=== PATIENT | female | born 1985 | race Caucasian/White ===

== ENCOUNTER 2018-08-31 07:45 | Emergency (ER) | payer MEDICAID, SELFPAY ==
[2018-08-31 07:50] VITALS: BP 110/58; PULSE 62; RESP 14; TEMP 36.7; O2SAT 98
--- NOTE | 2018-08-31 08:17 | ED.GENADUL_ITS ---
Discharge Plan Disposition Patient Disposition: HOME Condition: Stable Discharge Details Chief Complaint: Allergic Clinical Impression: Allergic reaction Primary Care Provider: Ivania Shea ED Provider: Renata Jarrett Home Meds and New Rx's Prescriptions: New prednisone 20 mg tablet 20 mg PO DAILY Qty: 12 RF: 0 Continued ondansetron HCl [Zofran] 4 mg tablet 4 mg PO QID PRN (Reason: nausea and vomiting) Qty: 20 RF: 1 Nature Made Vitamin 1 tab PO DAILY RF: 0 Discontinued cephalexin 500 mg capsule 500 mg PO Q12H Qty: 20 RF: 1 Discharge Instructions Instructions: General Allergic Reaction (ED) Additional Instructions: Take [id number] Zyrtec, Claritin, or Stacie to help with itching. These are nonsedating antihistamines. Take the steroids as directed until finished. Call your soft work wrapper layer and examiner tomorrow morning to schedule a follow-up appointment for reevaluation this week. Return immediately to the emergency department with any worsening or new concerning symptoms. Discharge Data Discharge Date/Time-TO BE ENTERED AT DEPARTURE: 08/31/18 08:21 Discharge Physician: Renata Jarrett Medical Decision Making 32-year-old female who recently started dicloxacillin for mastitis who developed a pruritic erythematous rash under her armpits, which then worsened after stopping the dicloxacillin and starting cephalexin over the past week. Her mastitis is now resolved. She finished the Keflex 2 days ago. She denies any throat swelling or itching or shortness of breath or wheezing. Vitals within normal limits. Patient appears nontoxic. No signs of respiratory distress. Speaking full sentences. Airway intact. She has an erythematous rash noted underneath bilateral axilla, neck and face. Normal ENT exam. Lungs clear to auscultation. Discussed with patient that her rash appears like it was due to the dicloxacillin, but as it worsened after taking the Keflex this would be a possibility as well. She is already finished the Keflex and the mastitis is now resolved. She states she is no longer breast-feeding as her [id number] has stopped breast-feeding 3 days ago. She states she does not plan to restart breast-feeding. Will give a prescription for prednisone for allergic reaction. Discussed that her allergic reaction was likely due to the dicloxacillin. She states she has tolerated amoxicillin in the past. She is instructed to discuss with her primary care doctor and her soft work wrapper layer and examiner whether she should be taking cephalexin in the future although she has taken it before and not had an allergic reaction. She is instructed to take [id number] nonsedating antihistamines to help with itching throughout the day while caring for her children. She is instructed to finish the steroids as directed. She is instructed to call her soft work wrapper layer and examiner tomorrow morning to schedule a follow-up appointment for reevaluation this week and return here immediately if worse. She has not yet restarted her menses while breast-feeding. HPI General Mode of arrival: ambulatory . Date/Time Provider Initiated Documentation: 08/31/18 07:56 . Limitations to Documentation: no limitations . Information obtained by: patient . HPI Narrative: Patient is a 32-year-old female who presents with pruritic rash under her armpits, neck and face for the past 6 days. Patient states she developed left breast erythema, hardening of breast, and blotches around her nipple and called her OB doctor and was diagnosed with likely mastitis and started on dicloxacillin 1 week ago. Patient has a [id number] at home that she has been breast-feeding, but states he has not been breast-feeding for the past 3 days. Patient states 2 days after starting the dicloxacillin, she developed a itchy red rash under both armpits. She then followed up with her doctor and the dicloxacillin was stopped and she was started on cephalexin 4 days ago. She states since yesterday the rash has now spread from the axilla up to her neck and face. She states she finished the cephalexin for the mastitis 2 days ago and the mastitis is now resolved. She denies any fever, nausea, vomiting, throat swelling or itching, difficulty breathing, difficulty swallowing, shortness of breath or abdominal pain. She states she has been taking Benadryl at home but it has been making her sleepy during the day which is difficult when she is trying to take care of her kids. She states she does not plan on restarting breast-feeding at this point in time and states she is giving her son formula. She states she has taken cephalexin in the past during her and only reaction was diarrhea and denies any rash, throat or respiratory symptoms. She states she has not taken dicloxacillin before. Related Data Home Medications Medication Instructions Recorded Confirmed Nature Made Vitamin 1 tab PO DAILY 06/19/15 08/31/18 ondansetron HCl 4 mg tablet 4 mg PO QID PRN #20 tab 08/27/18 08/31/18 prednisone 20 mg PO DAILY #12 tab 08/31/18 Previous Rx's Medication Instructions Recorded ondansetron HCl 4 mg tablet 4 mg PO QID PRN #20 tab 08/27/18 prednisone 20 mg PO DAILY #12 tab 08/31/18 Allergies Allergy/AdvReac Type Severity Reaction Status Date / Time cephalexin AdvReac Severe GI UPSET Unverified 08/27/18 14:17 fruit AdvReac Intermediate Causes Uncoded 08/27/18 14:17 sores in her mouth General Stated Complaint: Allergic RYANN: 3 Review of Systems Review of Systems All systems reviewed & are unremarkable except as noted in HPI and below Constitutional Reports as per HPI, Denies chills and Denies fever(s) Eyes Denies blurry vision ENT Denies dizziness, Denies sore throat and Denies throat swelling Cardiovascular Denies chest pain and Denies dyspnea Respiratory Denies cough and Denies dyspnea Gastrointestinal Denies abdominal pain, Denies diarrhea and Denies vomiting Genitourinary Denies hematuria and Denies dysuria Musculoskeletal Denies back pain and Denies numbness Integumentary/Breasts Denies lesions and Reports rash Neurologic Denies dizziness, Denies focal weakness and Denies numbness Allergic/Immunologic Denies throat swelling PFSH Medical History (Acute) Genital herpes Surgical History No significant past surgical history (Acute) Family History Grandfather Alzheimer's disease Hyperlipidemia Grandmother No problems noted. Mother No problems noted. Father No problems noted. Sister No problems noted. Brother No problems noted. Grandfather No problems noted. Grandmother No problems noted. Daughter No problems noted. Social History Smoking/Tobacco Use Status: Never Alcohol Intake: never Drug use: Never Do you feel safe at home: Yes Do you feel safe in your relationship?: Yes Exam Const General: cooperative and healthy appearing Orientation: alert and awake [facility] Head: normal to inspection Ears: hearing grossly normal bilaterally, external ears normal and TM's normal bilaterally General nose exam: external nose normal Face and sinus: normal facial exam Mouth: oral mucosae normal Teeth and gingiva: dentition normal Throat: posterior oropharynx normal Eyes General: appearance normal, both eyes and all related structures Eyelids: eyelids normal Pupils: PERRL EOM: EOM intact bilaterally Neck Neck: normal visual inspection Lymphatic: no lymphadenopathy noted Chest Chest: normal inspection of the chest Breast inspection: normal inspection of the breasts (No erythema, papules, drainage or bleeding from breasts bilaterally.) Resp Effort & Inspection: normal respiratory effort and able to speak in complete sentences Auscultation: clear to auscultation bilaterally Cardio Rate: regular rate Rhythm: regular rhythm GI Inspection: normal to inspection Palpation: soft, not firm, no guarding, no hepatosplenomegaly, no masses and nontender Auscultation: normal bowel sounds Skin Other: Erythematous papules noted under bilateral axilla and base of neck extending up to top of head. No vesicles, drainage or bleeding. Neuro General: alert and awake Cognition: normal cognition Speech: speech normal Gait: normal gait Motor: muscle tone normal throughout Sensory Exam: no sensory deficits noted Extrem General: normal to inspection, full ROM and no edema Psych Appearance: grossly normal Mental Status: mental status grossly normal Speech and Movement: speech and movement normal Affect: normal affect Thought Process: normal Course Vital Signs Temperature 98.1 F 08/31/18 07:50 Pulse 62 08/31/18 07:50 Respiratory Rate 14 08/31/18 07:50 Blood Pressure 110/58 L 08/31/18 07:50 Pulse Oximetry 98 08/31/18 07:50 Temperature 98.1 F 08/31/18 07:50 Temperature Source Temporal Artery Scan 08/31/18 07:50 Pulse 62 08/31/18 07:50 Respiratory Rate 14 08/31/18 07:50 Respiratory Effort Non-Labored 08/31/18 07:55 Respiratory Pattern Normal 08/31/18 07:54 Blood Pressure 110/58 L 08/31/18 07:50 Pulse Oximetry 98 08/31/18 07:50 Oxygen Delivery Method Room Air 08/31/18 07:50 Oxygen Flow Rate 0 08/31/18 07:50 Pain Level 5 08/31/18 07:50
== END 2018-08-31 08:21 | disposition home or self-care (01) ==
PROVIDERS: Emergency Provider Physician Assistant
DX: L50.0 Allergic urticaria (principal)
CPT/HCPCS: 99282

== ENCOUNTER 2019-07-04 07:46 | Emergency (ER) | payer MEDICAID, SELFPAY ==
[2019-07-04 07:49] VITALS: BP 103/46; PULSE 98; RESP 16; TEMP 37.4; O2SAT 98
--- NOTE | 2019-07-04 07:56 | ED.GENADUL_ITS ---
Discharge Plan Disposition Patient Disposition: HOME Condition: Good Discharge Details Chief Complaint: RespSymp Clinical Impression: Influenza Primary Care Provider: Ivania Shea ED Provider: Marti Apple Home Meds and New Rx's Prescriptions: New oseltamivir [Tamiflu] 75 mg capsule 75 mg PO BID Qty: 9 RF: 0 ondansetron 4 mg tablet,disintegrating 4 mg PO Q6H PRN (Reason: nausea and vomiting) Qty: 14 RF: 0 Continued Nature Made Vitamin 1 tab PO DAILY RF: 0 Discharge Instructions Instructions: Influenza (ED) Additional Instructions: Encourage water intake. Please continue with Tylenol and ibuprofen as needed for discomfort or fevers. Use Zofran as prescribed to help with any nausea that may occur. Tamiflu was prescribed to help with influenza. Please follow-up with primary care next week. If you develop difficulty breathing, shortness of breath, inability stay hydrated or other new/worsening symptom please seek care urgently once again. Referrals: Ivania Shea, [employer] [Primary Care Provider] - Medical Decision Making Patient is a pleasant 33-year-old female presenting today with chief complaint of flulike illness. She reports that symptoms began suddenly yesterday. Endorses body aches, fever, cough, nausea and general malaise. Reports T-max of 101.9 ?F at home. She did take 400 of ibuprofen this morning. Also endorses headache. No vomiting, diarrhea. No change in urinary habits. She is not short of breath or having chest pain. No difficulty breathing. She reports that her son was diagnosed with influenza B 4 days ago. On exam, patient appears fatigued and flushed but nontoxic. Lungs are clear, normal abdominal exam. Is a patient has known exposure to influenza and is exhibiting all of the classic signs and symptoms, will begin the patient on Tamiflu. We will hold off on testing at this time as this patient will be treated regardless of the results. We will begin the patient on Tamiflu. Will give ondansetron first to help with her nausea. Plan to Give Tylenol and further ibuprofen to help with symptomatic management. Hydrate patient orally. Patient tolerating p.o. intake. Nausea is improved after the ODT Zofran. She tolerated Tylenol, ibuprofen and Tamiflu. Will be prescribed further Tamiflu and Zofran. She was given return precautions. All of her questions or concerns were addressed and she are in agreement this plan. HPI General Mode of arrival: ambulatory . Date/Time Provider Initiated Documentation: 07/04/19 07:47 . Limitations to Documentation: no limitations . Information obtained by: patient and RN notes reviewed . History of Present Cameron hassan 33 year old F presents to the emergency department with the chief complaint of flu like illness, described as moderate, Quality is described as aching (diffuse body aches), Patient started experiencing this day(s) (1) and it has been constant. No relieving factors improve symptom(s), No exacerbating factors reported . Patient notes cough, fever/chills, headaches, loss of appetite and nausea/vomiting (nausea, no vomiting); denies chest pain, rash, shortness of breath and weakness. Patient did receive the following treatments prior to arrival, NSAID (400mg Ibuprofen one hour prior to arrival) Related Data Home Medications Medication Instructions Recorded Confirmed Nature Made Vitamin 1 tab PO DAILY 06/19/15 07/04/19 ondansetron 4 mg PO Q6H PRN #14 tab 07/04/19 oseltamivir [Tamiflu] 75 mg PO BID #9 cap 07/04/19 Previous Rx's Medication Instructions Recorded ondansetron 4 mg PO Q6H PRN #14 tab 07/04/19 oseltamivir [Tamiflu] 75 mg PO BID #9 cap 07/04/19 Allergies Allergy/AdvReac Type Severity Reaction Status Date / Time cephalexin AdvReac Severe GI UPSET Unverified 07/04/19 07:54 fruit AdvReac Intermediate Causes Uncoded 07/04/19 07:54 sores in her mouth General Stated Complaint: RespSymp RYANN: 3 Review of Systems Constitutional Constitutional: Reports as per HPI and Denies headache(s) Eyes Eyes: Reports as per HPI, Denies eye discharge and Denies irritation ENT Ears, Nose, Mouth, and Throat: Reports as per HPI and Denies headache(s) Cardiovascular Cardiovascular: Reports as per HPI, Denies chest pain and Denies dyspnea Respiratory Respiratory: Reports as per HPI and Denies dyspnea Gastrointestinal Gastrointestinal: Reports as per HPI, Denies abdominal pain, Denies change in bowel habits, Denies nausea and Denies vomiting Integumentary/Breasts Skin/Breast: Reports as per HPI and Denies rash Neurologic Neurologic: Reports as per HPI and Denies headache(s) [facility] Medical History (Acute) Genital herpes 2-3 episodes/yr. Rx with Valcyclovir. Surgical History No significant past surgical history (Acute) Social History Smoking/Tobacco Use Status: Never Alcohol Intake: never Drug use: Never Do you feel safe at home: Yes Do you feel safe in your relationship?: Yes Exam Const General: cooperative, comfortable, no acute distress, well developed, well groomed and ill appearing acutely (appears fatigued and flushed) Nutritional Appearance: average body habitus and well nourished Orientation: alert and awake [facility] Head: normal to inspection, normocephalic and atraumatic Ears: hearing grossly normal bilaterally, external ears normal and TM's normal bilaterally General nose exam: external nose normal and nares normal Face and sinus: normal facial exam, sinuses nontender and face symmetric Mouth: oral mucosae normal, lip normal, tongue normal, oropharynx normal and moist mucous membranes Teeth and gingiva: dentition normal Throat: posterior oropharynx normal, tonsils normal and uvula midline Eyes General: appearance normal, both eyes and all related structures Neck Neck: normal visual inspection, full ROM, no lymphadenopathy and no meningeal signs Resp Effort & Inspection: normal respiratory effort, able to speak in complete sentences and no respiratory distress Auscultation: clear to auscultation bilaterally, no rales, no rhonchi and no wheezes Cardio Rate: regular rate Rhythm: regular rhythm Heart Sounds: S1 normal and S2 normal GI Inspection: normal to inspection Palpation: soft, no hepatosplenomegaly, not firm, no guarding, not rigid and nontender Percussion: normal to percussion Auscultation: normal bowel sounds Skin General skin exam: no rashes or lesions noted Neuro General: alert and awake Cognition: normal cognition Speech: speech normal Gait: normal gait Psych Appearance: grossly normal and well kempt Mental Status: mental status grossly normal Speech and Movement: speech and movement normal Course Vital Signs Vital signs: Vital Signs Temperature 37.4 C 07/04/19 07:49 Pulse 98 H 07/04/19 07:49 Respiratory Rate 16 07/04/19 07:49 Blood Pressure 103/46 L 07/04/19 07:49 Pulse Oximetry 98 07/04/19 07:49 Temperature 37.4 C 07/04/19 07:49 Temperature Source Skin 07/04/19 07:49 Pulse 98 H 07/04/19 07:49 Respiratory Rate 16 07/04/19 07:49 Blood Pressure 103/46 L 07/04/19 07:49 Blood Pressure Position Sitting 07/04/19 07:49 Pulse Oximetry 98 07/04/19 07:49 Oxygen Delivery Method Room Air 07/04/19 07:49 Oxygen Flow Rate 0 07/04/19 07:49
[2019-07-04] MEDS: Ondansetron O.D.T. 4 MG TABEF PO (08:00)
[2019-07-04] MEDS: Acetaminophen 500 MG TAB 1000 MG PO (08:18)
[2019-07-04] MEDS: Ibuprofen 200 MG TAB PO (08:19)
[2019-07-04] MEDS: Oseltamivir 75 MG CAP PO (08:23)
== END 2019-07-04 08:36 | disposition home or self-care (01) ==
PROVIDERS: Emergency Provider Physician Assistant
DX: R50.9 Fever, unspecified (principal); M79.10 Myalgia, unspecified site; J11.1 Influenza due to unidentified influenza virus with other respiratory manifestations
CPT/HCPCS: 99283

== ENCOUNTER 2020-05-20 02:18 | Outpatient (CLI) | payer MEDICAID, SELFPAY ==
[2020-05-23 21:32] LABS: COVID-19 RT-PCR Result NEGATIVE (Negative)
== END 2020-05-20 02:38 ==
DX: Z11.59 Encounter for screening for other viral diseases (principal)
CPT/HCPCS: U0003